=== PATIENT | male | born 1970 ===

== ENCOUNTER 2019-03-07 18:28 | Emergency (ER) | payer OTHER ==
[2019-03-07] MEDS ORDERED: ATIVAN IM PRN (19:02)
[2019-03-07] MEDS ORDERED: HALDOL IM PRN (19:02)
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
[2019-03-07 19:25] LABS: Hematocrit 48.9 % (35.5-45.6); Hemoglobin 17.2 gm/dl (11.8-15.2); Mean Corpuscular HGB Conc 35 % (32-34); Mean Corpuscular Volume 88 fl (84-94); Platelet Count 159 K/mm3 (140-440); Red Blood Count 5.55 M/mm3 (3.65-5.03); Red Cell Distribution Width 13.6 % (13.2-15.2)
[2019-03-07 19:41] LABS: BUN/Creatinine Ratio 17; Blood Urea Nitrogen 10 mg/dL (9-20); Calcium 8.9 mg/dL (8.4-10.2); Hemolysis Index 43
[2019-03-07] MEDS ORDERED: D5/0.45NS 1,000 ML IV SCH (20:00)
[2019-03-07] MEDS ORDERED: K-DUR PO ONE (20:01)
--- NOTE | 2019-03-07 20:05 | Cat Scan Report ---
PROCEDURE: CT HEAD/BRAIN WO CON TECHNIQUE: Computerized tomography of the head was performed without contrast material. Imaging was obtained in axial increments. Sagittal and coronal reconstruction was also obtained. CT DOSE LENGTH PRODUCT: 1047.8 mGycm HISTORY: ETOH fall drunk COMPARISONS: None . FINDINGS: There has been deformity of the right frontal bone just off midline with overriding of the skull frag ments noted. 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 The ventricular system is normal in size and configuration. There is no evidence for parenchymal volu me loss. There is no evidence for mass lesion, mass effect, midline shift, acute intracranial hemorrhage, or a cute ischemia/ infarction. No evidence for acute skull fracture is seen. No abnormality in the overlying scalp soft tissues is s een. Visualized paranasal sinuses are clear. IMPRESSION: No acute intracranial process noted. Postsurgical changes in the right frontal region This document is electronically signed by Clementina Gomez MD., March 07 2019 08:03:40 PM ET
--- NOTE | 2019-03-07 20:21 | Cat Scan Report ---
PROCEDURE: CT CERVICAL SPINE WO CON TECHNIQUE: Standard CT cervical spine obtained at 2.5 mm axial increments. Coronal and sagittal rec onstruction was also performed. CT DOSE LENGTH PRODUCT: 653.6 mGycm HISTORY: ETOH fall drunk COMPARISON: None FINDINGS: The vertebral bodies are intact. There is no evidence for acute fracture. There is no evidence for pa ravertebral soft tissue swelling. There is straightening of the cervical curvature centered around C4-C5, likely due to muscle spasm. IMPRESSION: No acute bony abnormality of the cervical spine. Straightening of cervical curvature likely due to mu scle spasm. This document is electronically signed by Clementina Gomez MD., March 07 2019 08:18:54 PM ET
[2019-03-08 07:33] VITALS: BP 133/78
== END 2019-03-08 07:37 | disposition home or self-care (01) ==
LOC: ED 18:28
DX: F10.129 Alcohol abuse with intoxication, unspecified (principal); R51 Headache; F17.200 Nicotine dependence, unspecified, uncomplicated
CPT/HCPCS: 36415; 70450; 72125; 80048; 82550; 83735; 85027; G0480; 80320